=== PATIENT | male | born 1965 | race Caucasian/White ===

== ENCOUNTER 2018-04-16 09:04 | Emergency (ER) | payer SELFPAY ==
[2018-04-16 09:40] VITALS: BP 164/108
--- NOTE | 2018-04-16 09:45 | UC ---
Back Pain HPI - HPI Summary HPI Summary: 53-year-old male presents with 2 week history of left lower back pain. Unsure of injury however does report that he frequently has to lift 50 pound bags at work as well as does heavy lifting at home as well. Describes pain as a constant ache. Nonradiating. Worsens with twisting, bending, and lifting. States he has been taking ibuprofen 600 mg occasionally with relief from the pain. Denies fever, chills, chest pain, shortness of breath, abdominal pain, nausea, vomiting, dysuria, frequency, urgency, hematuria, weakness, numbness, or tingling in the lower extremities, or loss of bowel or bladder control. - History of Current Complaint Chief Complaint: UCBackPain Stated Complaint: WC - BACK PAIN Time Seen by Provider: 04/16/18 09:32 Hx Obtained From: Patient Onset/Duration: Sudden Onset, Lasting Weeks - 2 Timing: Constant Severity Currently: Moderate Pain Intensity: 7 Character: Aching Aggravating Factor(s): Movement, Lifting, Bending Alleviating Factor(s): OTC Meds Associated Signs And Symptoms: Negative: Fever, Weakness, Numbness, Tingling, Abdominal Pain, Flank Pain, Bladder Incontinence, Bowel Incontinence - Allergies/Home Medications Allergies/Adverse Reactions: Allergies Allergy/AdvReac Type Severity Reaction Status Date / Time No Known Allergies Allergy Verified 04/16/18 09:37 PMH/Surg Hx/FS Hx/Imm Hx Previously Healthy: Yes - Denies significant PMH - Surgical History Surgical History: Yes Surgery Procedure, Year, and Place: DOUBLE HERNIA AN INFANT - Family History Family History: Noncontributory - Social History Alcohol Use: Daily Substance Use Type: None Smoking Status (MU): Light Every Day Tobacco Smoker Amount Used/How Often: 1/2 PPD Review of Systems Constitutional: Negative Skin: Negative Respiratory: Negative Cardiovascular: Negative Gastrointestinal: Negative Genitourinary: Negative Motor: Negative Neurovascular: Negative Musculoskeletal: Other: - See HPI All Other Systems Reviewed And Are Negative: Yes Physical Exam Triage Information Reviewed: Yes Appearance: Well-Appearing, No Pain Distress, Well-Nourished Vital Signs: Initial Vital Signs Temp 97.8 F 04/16/18 09:33 Pulse 76 04/16/18 09:33 Resp 20 04/16/18 09:33 BP 164/108 04/16/18 09:33 Pulse Ox 98 04/16/18 09:33 Eye Exam: Normal Respiratory: Positive: Lungs clear, Normal breath sounds, No respiratory distress Cardiovascular: Positive: RRR, No Murmur Abdomen Description: Positive: Nontender, No Organomegaly, Soft. Negative: Distended, Guarding Musculoskeletal: Positive: Strength Intact, ROM Limited @ - Lumbar flexion d/t pain, Other: - Mild soft tissue tenderness left lower back without spasm. No tenderness of the spinous processes CTLS spine. Neurological: Positive: Alert, Other: - Sensation intact distally Skin Exam: Normal Back Pain Course/Dx - Course Course Of Treatment: 53 year old male with 2 week history left lower back pain. Exam consistent with musculoskeletal low back pain. Recommend continued conservative treatment with NSAIDs, heat, and low back exercises. Referral to PT provided. He has an appointment with orthopedic surgery for evaluation in 2 days. Warning symptoms reviewed. Verbalizes understanding and agrees with POC. - Differential Dx/Diagnosis Provider Diagnoses: acute low back pain, elevated blood pressure reading Discharge - Sign-Out/Discharge Documenting (check all that apply): Patient Departure All imaging exams completed and their final reports reviewed: No Studies - Discharge Plan Condition: Stable Disposition: HOME Prescriptions: Naproxen [Naproxen 500 mg tab] 500 mg PO Q12HR #30 tablet Patient Education Materials: Acute Low Back Pain (ED), Lower Back Exercises (ED ) Forms: *Work Release Referrals: No Primary Care Phys,NOPCP [Primary Care Provider] - [facility] [Outside] - As Soon As Possible Additional Instructions: Take naproxen 1 tab every 12 hours for next 5-7 days. Take with food to avoid upset stomache. After 5-7 days may take every 12 hours as needed for pain. Use a heating pad to the affected area for 15-20 minutes 4 times a day. Use the low back exercises that were provided to you to help stretch and strengthen the low back muscles. I have provided you with a prescription for evaluation and treatment at physical therapy since your pain has not improved with conservative treatment alone. Your blood pressure was elevated in the clinic today. It is recommended that you establish with a primary care provider to have this rechecked. I have made a referral to the [facility] until you can establish with a primary care provider. Call for an appointment. Seek immediate medical attention in the emergency room if you have worsening of pain despite using the pain medication, develop weakness, numbness, or tingling in the lower extremities, or you lose control of your bowel or bladder. - Billing Disposition and Condition Condition: STABLE Disposition: Home
== END 2018-04-16 10:09 | disposition home or self-care (01) ==
LOC: UCCORT 09:04
DX: M54.5 Low back pain (principal); F17.210 Nicotine dependence, cigarettes, uncomplicated; R03.0 Elevated blood-pressure reading, without diagnosis of hypertension
CPT/HCPCS: 99202; G0463